=== PATIENT | male | born 1985 | race African-American/Black ===

== ENCOUNTER 2019-10-13 16:15 | Emergency (ER) | payer SELFPAY ==
[~2019-10-13] VITALS: Ht 180.3 cm; Wt 80.0 kg
[2019-10-13] MEDS ORDERED: LORAZEPAM 2MG/ML CPJ IM STA (21:42)
[2019-10-13] MEDS ORDERED: SODIUM CHLORIDE 0.9% 1,000 ML IV ONE (21:42)
[2019-10-13] MEDS ORDERED: OLANZAPINE 10 MG/VIAL IM STA (21:42)
[2019-10-13 22:37] LABS: BASOPHILS % 0.5 % (0.0-2.0); EOSINOPHILS % 0.4 % (0.0-5.0); HEMATOCRIT. 44.9 % (42.0-52.0); HEMOGLOBIN. 15.1 g/dL (14.0-18.0); LYMPHOCYTES % 18.2 % (20.0-50.0); MEAN CORPUSCULAR HEMOGLOBIN 29.2 pg (28.0-32.0); MEAN CORPUSCULAR VOLUME 86.9 fL (80.0-94.0); MEAN PLATELET VOLUME 8.6 fl (7.4-10.4); MONOCYTES % 6.9 % (2.0-8.0); PLATELET 311 x1000/uL (130-400); RED BLOOD CELL COUNT 5.17 mill/uL (4.7-6.1)
[2019-10-13 22:40] LABS: CHLORIDE 110 mEq/L (98-107)
[2019-10-13 22:50] LABS: CREATINE KINASE 391 IU/L (39-308)
[2019-10-14 15:18] VITALS: BP 123/78
== END 2019-10-14 15:23 | disposition home or self-care (01) ==
LOC: ER 16:15
DX: F29 Unspecified psychosis not due to a substance or known physiological condition (principal); G93.49 Other encephalopathy; E86.0 Dehydration; F19.10 Other psychoactive substance abuse, uncomplicated; R03.0 Elevated blood-pressure reading, without diagnosis of hypertension
CPT/HCPCS: 36415; 80053; 80307; 80329; 82140; 82550; 82962; 84443; 85025; 93005; 96360; 96372; 99285; J2060; J3490; J7030; Z7610